=== PATIENT | female | born 1965 | race Two or more races ===

== ENCOUNTER 2017-09-07 19:40 | Observation (INO) | payer OTHER ==
[2017-09-07] MEDS ORDERED: morphine 2 MG INJ IV (20:30)
[2017-09-07] MEDS: ACETAMINOPHEN 325 MG TAB PO (21:49)
[2017-09-07] MEDS: MECLIZINE 25 MG TAB PO (23:00)
[2017-09-08] MEDS ORDERED: ALBUTEROL/IPRATROPIUM (NEB) 3 ML AMP HHN (07:00)
[2017-09-08] MEDS ORDERED: ACETAMINOPHEN 325 MG TAB PO (07:00)
[2017-09-08] MEDS ORDERED: NACL 0.9% 3 ML SYG IV (07:00)
[2017-09-08] MEDS ORDERED: morphine 2 MG INJ IV (07:00)
[2017-09-08] MEDS: INSULIN ASPART [NOVOLOG] 3 ML PEN SC ×4 (08:00→21:00)
[2017-09-08 08:16] LABS: ADD MAN DIFF? NO
[2017-09-08 08:20] LABS: WHITE BLOOD COUNT 5.8 10^3/ul (4.8-10.8)
[2017-09-08 08:20] LABS: BASOPHILS % 0.5 % (0.0-2.0); EOSINOPHILS # 0.1 10^3/ul (0.0-0.5); EOSINOPHILS % 1.9 % (0.0-7.0); HEMATOCRIT 40.4 % (37.0-47.0); HEMOGLOBIN 13.5 g/dl (12.0-16.0); LYMPHOCYTES # 1.6 10^3/ul (0.8-2.9); LYMPHOCYTES % 27.6 % (15.0-51.0); MEAN CORPUSCULAR HEMOGLOBIN 28.8 pg (29.0-33.0); MEAN CORPUSCULAR HGB CONC 33.4 g/dl (32.0-37.0); MEAN CORPUSCULAR VOLUME 86.1 fl (82.0-101.0); MEAN PLATELET VOLUME 11.3 fl (7.4-10.4); MONOCYTE # 0.4 10^3/ul (0.3-0.9); MONOCYTES % 6.4 % (0.0-11.0); NEUTROPHIL # 3.7 10^3/ul (1.6-7.5); NEUTROPHILS % 63.4 % (39.0-77.0); PLATELET COUNT 247 10^3/UL (140-415); RED BLOOD COUNT 4.69 10^6/ul (4.20-5.40); RED CELL DISTRIBUTION WIDTH 12.7 % (11.5-14.5)
[2017-09-08] MEDS: MECLIZINE 25 MG TAB PO ×3 (08:39→21:04)
[2017-09-08] MEDS: ACETAMINOPHEN 325 MG TAB PO ×2 (08:39→17:45)
[2017-09-08 08:43] LABS: ALANINE AMINOTRANSFERASE 124 IU/L (13-69); ALBUMIN/GLOBULIN RATIO 1.17; ALKALINE PHOSPHATASE 113 IU/L (42-121); ANION GAP 13 (8-16); ASPARTATE AMINO TRANSFERASE 70 IU/L (15-46); BILIRUBIN,INDIRECT 0.3 mg/dl (0-1.1); BILIRUBIN,TOTAL 0.3 mg/dl (0.2-1.3); BLOOD UREA NITROGEN 12 mg/dl (7-20); CALCIUM 9.7 mg/dl (8.4-10.2); CARBON DIOXIDE 26 mmol/L (21-31); CHLORIDE 104 mmol/L (97-110); CHOL/HDL RATIO 2.2 RATIO; CHOLESTEROL 177 mg/dl (100-200); CREATININE 0.61 mg/dl (0.44-1.00); GLUCOSE 128 mg/dl (70-220); HDL CHOLESTEROL 77 mg/dl (37-92); LDL CHOLESTEROL,CALCULATED 76 mg/dl; PHOSPHORUS 4.3 mg/dl (2.5-4.9); POTASSIUM 3.9 mmol/L (3.5-5.1); SODIUM 139 mmol/L (135-144); TOTAL PROTEIN 7.4 g/dl (6.1-8.1); TRIGLYCERIDES 119 mg/dl (0-149)
[2017-09-08 08:59] LABS: T3 UPTAKE 26.1 % (23.5-40.5)
[2017-09-08 09:01] LABS: FREE THYROXINE INDEX (Calc) 3.11 ug/ml (0.65-3.89); T4 (THYROXINE) 11.9 ug/dl (5.5-11.0)
[2017-09-08] MEDS ORDERED: hydrALAzine 20 MG INJ IV (09:30)
[2017-09-08] MEDS: AMLODIPINE 10 MG TAB PO (09:58)
[2017-09-08 10:22] LABS: HEMOGLOBIN A1C 6.4 % (0-5.9)
[2017-09-08] MEDS ORDERED: DEXTROSE 50% 50 ML SYRINGE IV ×2 (14:00)
[2017-09-08] MEDS ORDERED: GLUCOSE GEL 15 GRAM TUBE BUCCAL (14:00)
[2017-09-08] MEDS ORDERED: GLUCOSE GEL 15 GRAM TUBE PO ×2 (14:00)
[2017-09-08] MEDS ORDERED: GLUCAGON 1 MG INJ IM (14:00)
[2017-09-08] MEDS: ONDANSETRON 4 MG INJ IV (17:45)
[2017-09-08] MEDS: INSULIN GLARGINE [LANtus] 3 ML PEN SC (21:07)
[2017-09-09] MEDS: ACCU-CHEK XX (01:21)
[2017-09-09 06:04] LABS: ADD MAN DIFF? NO
[2017-09-09 06:12] LABS: WHITE BLOOD COUNT 5.5 10^3/ul (4.8-10.8)
[2017-09-09 06:12] LABS: BASOPHIL # 0.1 10^3/ul (0.0-0.1); BASOPHILS % 0.9 % (0.0-2.0); EOSINOPHILS # 0.2 10^3/ul (0.0-0.5); EOSINOPHILS % 2.7 % (0.0-7.0); HEMATOCRIT 41.3 % (37.0-47.0); HEMOGLOBIN 13.5 g/dl (12.0-16.0); LYMPHOCYTES # 1.8 10^3/ul (0.8-2.9); LYMPHOCYTES % 31.8 % (15.0-51.0); MEAN CORPUSCULAR HEMOGLOBIN 28.4 pg (29.0-33.0); MEAN CORPUSCULAR HGB CONC 32.7 g/dl (32.0-37.0); MEAN CORPUSCULAR VOLUME 86.8 fl (82.0-101.0); MEAN PLATELET VOLUME 11.3 fl (7.4-10.4); MONOCYTE # 0.3 10^3/ul (0.3-0.9); MONOCYTES % 6.2 % (0.0-11.0); NEUTROPHIL # 3.2 10^3/ul (1.6-7.5); NEUTROPHILS % 58.2 % (39.0-77.0); PLATELET COUNT 267 10^3/UL (140-415); RED BLOOD COUNT 4.76 10^6/ul (4.20-5.40); RED CELL DISTRIBUTION WIDTH 12.6 % (11.5-14.5)
[2017-09-09 06:28] LABS: INR 0.96; PROTIME 12.9 Sec (11.9-14.9)
[2017-09-09 06:53] LABS: ALBUMIN 4.1 g/dl (3.3-4.9); ASPARTATE AMINO TRANSFERASE 62 IU/L (15-46); BILIRUBIN,INDIRECT 0.2 mg/dl (0-1.1); BILIRUBIN,TOTAL 0.2 mg/dl (0.2-1.3); CHLORIDE 105 mmol/L (97-110); PHOSPHORUS 4.6 mg/dl (2.5-4.9); POTASSIUM 3.9 mmol/L (3.5-5.1)
[2017-09-09 07:52] LABS: ALANINE AMINOTRANSFERASE 113 IU/L (13-69); ALKALINE PHOSPHATASE 109 IU/L (42-121); ANION GAP 14 (8-16); BLOOD UREA NITROGEN 16 mg/dl (7-20); CALCIUM 9.4 mg/dl (8.4-10.2); CARBON DIOXIDE 27 mmol/L (21-31); CREATININE 0.67 mg/dl (0.44-1.00); GLUCOSE 111 mg/dl (70-220); MAGNESIUM 2.3 mg/dl (1.7-2.5); SODIUM 142 mmol/L (135-144); TOTAL PROTEIN 7.6 g/dl (6.1-8.1)
[2017-09-09 07:53] LABS: ALBUMIN/GLOBULIN RATIO 1.17
[2017-09-09] MEDS: INSULIN ASPART [NOVOLOG] 3 ML PEN SC ×4 (07:56→20:53)
[2017-09-09 08:17] LABS: HEMOGLOBIN A1C 6.3 % (0-5.9)
[2017-09-09 08:55] LABS: MAGNESIUM 2.4 mg/dl (1.7-2.5)
[2017-09-09 08:55] LABS: PHOSPHORUS 4.8 mg/dl (2.5-4.9)
[2017-09-09] MEDS: AMLODIPINE 10 MG TAB PO (09:54)
[2017-09-09] MEDS: MECLIZINE 25 MG TAB PO ×5 (09:54→21:01)
[2017-09-09] MEDS: ENOXAPARIN 40 MG/0.4 ML SYG SC (09:55)
[2017-09-09 10:01] LABS: FOLATE 13.2 ng/ml (2.8-20.0)
[2017-09-09 15:18] LABS: RAPID PLASMA REAGIN NONREACTIVE (NR)
[2017-09-09] MEDS: INSULIN GLARGINE [LANtus] 3 ML PEN SC (21:02)
[2017-09-10] MEDS: ACCU-CHEK XX (02:00)
[2017-09-10 06:44] LABS: ADD MAN DIFF? NO
[2017-09-10 06:54] LABS: WHITE BLOOD COUNT 5.9 10^3/ul (4.8-10.8)
[2017-09-10 06:54] LABS: BASOPHIL # 0.1 10^3/ul (0.0-0.1); EOSINOPHILS # 0.2 10^3/ul (0.0-0.5); EOSINOPHILS % 4.1 % (0.0-7.0); HEMATOCRIT 40.4 % (37.0-47.0); HEMOGLOBIN 13.5 g/dl (12.0-16.0); LYMPHOCYTES # 1.7 10^3/ul (0.8-2.9); MEAN CORPUSCULAR HEMOGLOBIN 28.7 pg (29.0-33.0); MEAN CORPUSCULAR HGB CONC 33.4 g/dl (32.0-37.0); MEAN PLATELET VOLUME 11.3 fl (7.4-10.4); MONOCYTE # 0.5 10^3/ul (0.3-0.9); NEUTROPHIL # 3.4 10^3/ul (1.6-7.5); NEUTROPHILS % 57.4 % (39.0-77.0); NUCLEATED RED BLOOD CELLS% 0.3 /100WBC (0.0-0.0); PLATELET COUNT 261 10^3/UL (140-415); RED CELL DISTRIBUTION WIDTH 12.9 % (11.5-14.5)
[2017-09-10 07:21] LABS: ANION GAP 14 (8-16); BLOOD UREA NITROGEN 21 mg/dl (7-20); CALCIUM 9.1 mg/dl (8.4-10.2); CARBON DIOXIDE 27 mmol/L (21-31); CHLORIDE 105 mmol/L (97-110); GLUCOSE 113 mg/dl (70-220); MAGNESIUM 2.3 mg/dl (1.7-2.5); POTASSIUM 3.9 mmol/L (3.5-5.1); SODIUM 142 mmol/L (135-144)
[2017-09-10 07:43] LABS: PHOSPHORUS 5.3 mg/dl (2.5-4.9)
[2017-09-10] MEDS: INSULIN ASPART [NOVOLOG] 3 ML PEN SC ×4 (08:00→20:23)
[2017-09-10] MEDS: ENOXAPARIN 40 MG/0.4 ML SYG SC (08:20)
[2017-09-10] MEDS: AMLODIPINE 10 MG TAB PO (08:24)
[2017-09-10] MEDS: MECLIZINE 25 MG TAB PO ×2 (08:27→12:22)
[2017-09-11] MEDS: ACCU-CHEK XX (02:00)
[2017-09-11] MEDS: MECLIZINE 25 MG TAB PO (06:15)
[2017-09-11] MEDS: INSULIN ASPART [NOVOLOG] 3 ML PEN SC ×3 (07:59→17:21)
[2017-09-11] MEDS: ENOXAPARIN 40 MG/0.4 ML SYG SC (08:58)
[2017-09-11] MEDS: AMLODIPINE 10 MG TAB PO (08:58)
== END 2017-09-11 18:10 | disposition home or self-care (01) ==
LOC: PP2 19:40
PROVIDERS: Internal Medicine
DX: R42 Dizziness and giddiness (principal); I10 Essential (primary) hypertension; E11.9 Type 2 diabetes mellitus without complications
CPT/HCPCS: 80048; 80053; 80061; 82607; 82746; 82962; 83036; 83735; 84100; 84436; 84443; 84479; 84703; 85025; 85610; 86592; 93005; 93306; 93880; 97163; 99217; G0378